=== PATIENT | male | born 1950 | race Two or more races ===

== ENCOUNTER 2023-01-10 00:50 | Inpatient (IN) | payer OTHER ==
[~2023-01-10] VITALS: Ht 167.6 cm; Wt 68.0 kg
--- NOTE | 2023-01-10 01:27 | NUR ---
PTE ALERTA Y ORIENTADA X3. PTE REFIERE QUE TIENE DOLOR ABDOMINAL DESDE ELVIN. ELVIN PRESENTO 6 VOMITOS.
--- NOTE | 2023-01-10 02:03 | NUR ---
PACIENTE TIENE EVELIO EVACUACION LIQUIDA COLOR BRIAN. SE OFRECE TERESA EN CAMA. Y SE CAMBIAN SABANAS. SE OFRECE PANAL A PACIENTE Y BATA.
--- NOTE | 2023-01-10 02:15 | NUR ---
PACIENTE ALERTA Y ORIENTADO X3. SE ORIENTA SOBRE TX Y PROCEDIMIENTO A REALIZAR Y REFIRIO ENTENDER. SE ADMINISTRA MEDICAMENTOS ORDENADOS POR MD. SE REALIZA MUESTRAS DE LABORATORIO BAJO MEDIDAS ASEPTICAS. CANALIZACION PATENTE Y DINO DE EDEMA Y ERITEMA. PENDIENTE MUESTRA DE FECAL Y SONOGRAMA ORDENADO POR .
[2023-01-10 03:46] LABS: CALCIUM 8.9 mg/dL (8.5-10.1); CREATININE SERUM 1.22 mg/dL (0.70-1.30); GFR 58.23; POTASSIUM 3.72 mEq/L (3.5-5.1)
[2023-01-10 03:49] LABS: HEMATOCRIT 42.8 % (39.0-48.0); HEMOGLOBIN 13.9 g/dL (13-16.00); MEAN CELL VOLUME 88.1 fL (80.0-100.00); MEAN CORPUSCULAR HEMOGLOBIN 28.6 pg (27.00-32.0); MEAN CORPUSCULAR HGB CONC 32.4 g/dl (32.0-36.0); PLATELET COUNT 258 K/uL (150-450); RED BLOOD COUNT 4.85 M/uL (4.00-6.00); RED CELL DISTRIBUTION WIDTH 13.5 % (11.5-14.5)
[2023-01-10 07:15] LABS: CALCIUM 8.7 mg/dL (8.5-10.1); CREATININE SERUM 1.06 mg/dL (0.70-1.30); GFR 68.48; POTASSIUM 3.69 mEq/L (3.5-5.1)
[2023-01-10 07:25] LABS: HEMATOCRIT 41.6 % (39.0-48.0); HEMOGLOBIN 13.6 g/dL (13-16.00); MEAN CORPUSCULAR HEMOGLOBIN 28.6 pg (27.00-32.0); MEAN CORPUSCULAR HGB CONC 32.8 g/dl (32.0-36.0); PLATELET COUNT 233 K/uL (150-450); RED BLOOD COUNT 4.78 M/uL (4.00-6.00); RED CELL DISTRIBUTION WIDTH 13.3 % (11.5-14.5)
--- NOTE | 2023-01-10 08:04 | NUR ---
SE RECIBE PTE ALERTA ORIENTADO X3 EN LI CON BARANDAS ELEVADAS POR PETERSON SEGURIDAD.VENOPUNCION PATENTE DINO DE EDEMA Y ERITEMA H/L CON ANGIO #18 EN MINERVAO WILI.RECIBIENDO 0.9 NSS/1000ML BAJANDO A 200ML/HR.PENDIENTE MUESTRAS DE LABORATORIO.
[2023-01-10 11:41] LABS: URINE APPEARANCE Clear; URINE BILIRRUBIN Negative (NEGATIVE); URINE BLOOD Negative; URINE COLOR Dark Yellow; URINE LEUKOCYTE Negative; URINE NITRATE Negative
[2023-01-10 11:42] LABS: URINE BACTERIA 32.7 uL (0.0-1933); URINE EPITHELIAL CELLS 8.6 uL (0.0-38.8); URINE RBC 6.8 uL (0.0-20.8); URINE WBC 5.2 uL (0.0-23.2)
[2023-01-10 11:46] LABS: URINE GLUCOSE >=1000 MG/DL (NEGATIVE); URINE PROTEIN 100 (NEGATIVE)
--- NOTE | 2023-01-10 15:06 | NUR ---
SE RECIBE PTE ALERTA EN CAMA CON BARANDAS ELEVADAS POR PETERSON SEGURIDAD. VENOPUNCION PATENTE BAJANDO IV FLUIDS POR REGULADOR. PTE PENDIENTE A ORDEN DE CONSULTA.
[2023-01-11 06:29] LABS: HEMATOCRIT 39.4 % (39.0-48.0); HEMOGLOBIN 13.1 g/dL (13-16.00); MEAN CELL VOLUME 87.2 fL (80.0-100.00); MEAN CORPUSCULAR HGB CONC 33.3 g/dl (32.0-36.0); PLATELET COUNT 251 K/uL (150-450); RED BLOOD COUNT 4.52 M/uL (4.00-6.00); RED CELL DISTRIBUTION WIDTH 13.5 % (11.5-14.5)
[2023-01-11 07:34] LABS: ALBUMIN 2.6 gm/dL (3.4-5.0); BILIRUBIN TOTAL 0.82 mg/dL (0.3-1.2); CALCIUM 8.2 mg/dL (8.5-10.1); GFR 73.24; GLOBULINA 3.6 G/DL (2.4-3.5); MAGNESIUM 2.5 mg/dL (1.8-2.4); PHOSPHOROUS 3.7 mg/dL (2.5-4.9); POTASSIUM 3.98 mEq/L (3.5-5.1); TOTAL PROTEIN 6.2 gm/dL (6.4-8.2)
[2023-01-12 10:50] LABS: HEMATOCRIT 37.3 % (39.0-48.0); HEMOGLOBIN 12.3 g/dL (13-16.00); MEAN CELL VOLUME 88.1 fL (80.0-100.00); MEAN CORPUSCULAR HEMOGLOBIN 29.1 pg (27.00-32.0); MEAN CORPUSCULAR HGB CONC 33.1 g/dl (32.0-36.0); PLATELET COUNT 245 K/uL (150-450); RED BLOOD COUNT 4.24 M/uL (4.00-6.00); RED CELL DISTRIBUTION WIDTH 13.3 % (11.5-14.5)
[2023-01-12 12:09] LABS: CREATININE SERUM 1.19 mg/dL (0.70-1.30); GFR 59.92; POTASSIUM 4.16 mEq/L (3.5-5.1); TSH 1.46 uIU/mL (0.358-3.74)
== END 2023-01-12 14:00 | disposition left against medical advice (07) | DRG 872 ==
LOC: ER 00:50 → MEDI 21:05
PROVIDERS: General Practice; ADMIT Internal Medicine; ATTEND Internal Medicine
PROC: BW40ZZZ Ultrasonography of Abdomen (ICD-10-PCS; principal; 2023-01-10)
PROC: BW21YZZ Computerized Tomography (CT Scan) of Abdomen and Pelvis using Other Contrast (ICD-10-PCS; 2023-01-10)
DX: A41.9 Sepsis, unspecified organism (principal); K80.00 Calculus of gallbladder with acute cholecystitis without obstruction; N17.9 Acute kidney failure, unspecified; E86.0 Dehydration; E11.65 Type 2 diabetes mellitus with hyperglycemia; I25.10 Atherosclerotic heart disease of native coronary artery without angina pectoris; I11.9 Hypertensive heart disease without heart failure; Z95.1 Presence of aortocoronary bypass graft; Z79.4 Long term (current) use of insulin